=== PATIENT | female | born 1960 | race Two or more races ===

== ENCOUNTER 2019-02-24 09:30 | Outpatient (AMBR) | payer MEDICAID, SELFPAY ==
--- NOTE | 2019-01-31 12:09 | PT.ODAYNRPT ---
PT Outpatient Daily Note Date of Service: January 31, 2019 OP Daily Note Pediatric or Adult Patient: Adult PT >13 Visit Reasons: left leg Outpatient Physical Therapy Treatment Date: 01/31/19 Subjective: Patient has pain on the ankle at the posterior part Objective: pls see FS Assessment: Patient brought her xray result showing tiny plantar calcaneal spur with a small bone on the posterior part of the calcaneus. Patient were given stretching exercise of the achilles and strengthening ex on DF and PF. HMP applied and stretching done afterwards. Patient were advised HEP for self stretching and apply hot pack first and then cold pack. Daughter is present and is the mill beam fitter. Plan: to continue POC toward goals Pain Present Currently: Yes Length of Time (minutes) of Treatment: 30 Minutes
--- NOTE | 2019-01-31 12:13 | PTNOTE_ITS ---
PT Outpatient Daily Note Date of Service: January 31, 2019 OP Daily Note Pediatric or Adult Patient: Adult PT >13 Visit Reasons: left leg Outpatient Physical Therapy Treatment Date: 01/31/19 Subjective: Patient has pain on the ankle at the posterior part Objective: pls see FS Assessment: Patient brought her xray result showing tiny plantar calcaneal spur with a small bone on the posterior part of the calcaneus. Patient were given stretching exercise of the achilles and strengthening ex on DF and PF. HMP applied and stretching done afterwards. Patient were advised HEP for self stretching and apply hot pack first and then cold pack. Daughter is present and is the machine pie maker. Plan: to continue POC toward goals Pain Present Currently: Yes Length of Time (minutes) of Treatment: 30 Minutes
--- NOTE | 2019-02-11 09:06 | PT.ODAYNRPT ---
PT Outpatient Daily Note Date of Service: February 11, 2019 OP Daily Note Pediatric or Adult Patient: Adult PT >13 Visit Reasons: left leg Outpatient Physical Therapy Treatment Date: 02/11/19 Subjective: Pain on the L heel Objective: pls see FS for therapy procedure Assessment: Patient were given Strengthening ex and gentle manual stretching on the L heel cord. Patient was last seen last week and PS 5-6/10. Patient complains of pain today is PS 7/10. Usually the pain is higher in the morning and whenever she is doing heavy work. 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 Patient understands very little Maori. patient were given Yellow green TB for exercise to be done at home and self stretching. Patient and daughter verbalized understanding. Plan: to continue POC toward goals Pain Present Currently: Yes (7/10) Length of Time (minutes) of Treatment: 30 Minutes Office Procedures PT Procedures PT Date of Service: 01/31/19 Therapeutic Exercise 30 minutes: Yes PT Procedures PT Date of Service: 02/11/19
--- NOTE | 2019-02-11 09:11 | PTNOTE_ITS ---
PT Outpatient Daily Note Date of Service: February 11, 2019 OP Daily Note Pediatric or Adult Patient: Adult PT >13 Visit Reasons: left leg Outpatient Physical Therapy Treatment Date: 02/11/19 Subjective: Pain on the L heel Objective: pls see FS for therapy procedure Assessment: Patient were given Strengthening ex and gentle manual stretching on the L heel cord. Patient was last seen last week and PS 5-6/10. Patient complains of pain today is PS 7/10. Usually the pain is higher in the morning and whenever she is doing heavy work. 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 Patient understands very little Vietnamese. patient were given Yellow green TB for exercise to be done at home and self stretching. Patient and daughter verbalized understanding. Plan: to continue POC toward goals Pain Present Currently: Yes (7/10) Length of Time (minutes) of Treatment: 30 Minutes Office Procedures PT Procedures PT Date of Service: 01/31/19 Therapeutic Exercise 30 minutes: Yes PT Procedures PT Date of Service: 02/11/19
--- NOTE | 2019-02-17 11:12 | PT.ODAYNRPT ---
PT Outpatient Daily Note Date of Service: February 17, 2019 OP Daily Note Pediatric or Adult Patient: Adult PT >13 Visit Reasons: left leg Outpatient Physical Therapy Treatment Date: 02/17/19 Subjective: Pain on my heel and under my foot PS 5/10 Objective: pls see FS for therapy procedures today. Assessment: patient were given hmp on heel and ice on the plantar aspect of the foot. Patient pain today is PS 5/10. Patient were given heel stretch and TB exercise for PF and DF. Bicycle to promote joint mobility of the ankle. No complain of increase in pain. Daughter is with the patient. Plan: to continue POC toward goals. Pain Present Currently: Yes Length of Time (minutes) of Treatment: 30 Minutes Office Procedures PT Procedures PT Date of Service: 01/31/19 Therapeutic Exercise 30 minutes: Yes PT Procedures PT Date of Service: 02/11/19 Therapeutic Exercise 30 minutes: Yes
--- NOTE | 2019-02-24 09:57 | PT.ODAYNRPT ---
PT Outpatient Daily Note Date of Service: February 24, 2019 OP Daily Note Pediatric or Adult Patient: Adult PT >13 Visit Reasons: left leg Outpatient Physical Therapy Treatment Date: 02/24/19 Subjective: Pain on my heel and ball of foot PS 6/10 Objective: pls see FS Assessment: Patient were given heel stretches and calf strengthening today. Patient states her pain is at PS 6/10. Patient were reminded to ice the heel later again this afternoon. Patient daughter verbalized understanding. Plan: To continue POC toward goals. Pain Present Currently: Yes Length of Time (minutes) of Treatment: 30 Minutes Office Procedures PT Procedures PT Date of Service: 02/17/19 Therapeutic Exercise 30 minutes: Yes PT Procedures PT Date of Service: 01/31/19 Therapeutic Exercise 30 minutes: Yes PT Procedures PT Date of Service: 02/11/19 Therapeutic Exercise 30 minutes: Yes
== END 2019-02-27 23:59 | disposition home or self-care (01) ==
PROVIDERS: Visit Provider Nurse Practitioner
DX: M25.572 Pain in left ankle and joints of left foot (principal)
CPT/HCPCS: 97110

== ENCOUNTER → 2025-10-12 | Outpatient (CLI) | payer MEDICARE, MEDICAID, SELFPAY ==
--- NOTE | 2025-10-12 12:53 | XR_ITS ---
Examination: Hand, right 3 views Technique: Hand AP, oblique, lateral 3 views Date and time of exam: October 12, 2025, 1319 hours INDICATIONS: Right hand finger pain 2 years FINDINGS: Mild juxta articular bone demineralization 2 mm old bone fragment at the base of the proximal phalanx fourth digit No erosive arthritis Mild osteoarthritis distal interphalangeal joint second through fifth digits and interphalangeal joint first digit as well as first carpometacarpal joint IMPRESSION: Osteoarthritis as above
--- NOTE | 2025-10-12 12:53 | XR_ITS ---
Examination: Wrist, right 3 views Technique: Wrist AP, oblique, lateral 3 views Date and time of exam: October 12, 2025, 1319 hours INDICATIONS: Right wrist pain beginning 2 months ago FINDINGS: Mild osteoarthritis radiocarpal, navicular trapezium, and first carpal metacarpal joints. No erosive arthritis 2 mm old bone densities distal to the ulna No acute fractures No avascular necrosis IMPRESSION: Mild osteoarthritis as above
== END | disposition home or self-care (01) ==
PROVIDERS: PCP Nurse Practitioner Gerontology; Referring Provider Nurse Practitioner Gerontology; Visit Provider Nurse Practitioner Gerontology
DX: M19.041 Primary osteoarthritis, right hand (principal); M19.031 Primary osteoarthritis, right wrist
CPT/HCPCS: 73110; 73130